=== PATIENT | male | born 1980 | race Caucasian/White ===

== ENCOUNTER 2022-10-21 20:22 | Emergency (ER) | payer BC, MEDICAID, OTHER ==
[2022-10-21] MEDS ORDERED: LACTATED RINGERS 1,000 ML IV ONE (20:30)
[2022-10-21] MEDS ORDERED: LORazepam INJ 2 MG/ML (ATIVAN) VIAL IVP ONE (20:30)
[2022-10-21 20:39] LABS: BASOPHILS % (AUTO) 0 % (0-10); EOSINOPHILS % (AUTO) 0 % (0-10); HEMATOCRIT 45 % (40-54); LYMPHOCYTES # (AUTO) 2.4 10^3/uL (1.0-4.0); LYMPHOCYTES % (AUTO) 24 % (12-44); MEAN CORPUSCULAR HEMOGLOBIN 30 pg (25-34); MEAN CORPUSCULAR HGB CONC 36 g/dL (32-36); MEAN CORPUSCULAR VOLUME 82 fL (80-99); MEAN PLATELET VOLUME 8.9 fL (9.0-12.2); MONOCYTES % (AUTO) 10 % (0-12); NEUTROPHILS # (AUTO) 6.3 10^3/uL (1.8-7.8); NEUTROPHILS % (AUTO) 65 % (42-75); PLATELET COUNT 341 10^3/uL (130-400); WHITE BLOOD COUNT 9.7 10^3/uL (4.3-11.0)
[2022-10-21 21:01] LABS: PROTHROMBIN TIME PATIENT 13.5 SEC (12.2-14.7)
[2022-10-21 21:12] LABS: ACETAMINOPHEN < 10 UG/ML (10-30); ALANINE AMINOTRANSFERASE 20 U/L (0-55); ALBUMIN 4.7 GM/DL (3.2-4.5); ALKALINE PHOSPHATASE 56 U/L (40-136); BILIRUBIN,TOTAL 1.3 MG/DL (0.1-1.0); BUN/CREATININE RATIO 7; CALCIUM 10.5 MG/DL (8.5-10.1); CARBON DIOXIDE 14 MMOL/L (21-32); CHLORIDE 107 MMOL/L (98-107); CREATINE KINASE 167 U/L (30-200); CREATININE SERUM 1.42 MG/DL (0.60-1.30); GFR ESTIMATED 63; GLUCOSE 100 MG/DL (70-105); MAGNESIUM 2.1 MG/DL (1.6-2.4); SALICYLATE < 5.0 MG/DL (5.0-20.0); SODIUM 139 MMOL/L (135-145); TOTAL PROTEIN 8.1 GM/DL (6.4-8.2)
--- NOTE | 2022-10-21 21:25 | Diagnostic Imaging Report ---
EXAMINATION: Chest 1 view. HISTORY: Chest pain. COMPARISON: None available. FINDINGS: The lung volumes are normal. No focal consolidation is seen. No large pleural effusion or pneumothorax is seen. The cardiomediastinal silhouette is normal in size and contour. No acute osseous abnormality is seen. IMPRESSION: No acute pleuroparenchymal process. Dictated by: Dictated on workstation # [id number]
[2022-10-21 21:28] LABS: CLARITY,URINE CLEAR; COLOR,URINE YELLOW; GLUCOSE, URINE (UA) NEGATIVE (NEGATIVE); KETONES,URINE 3+ (NEGATIVE); LEUKOCYTE ESTERASE ,URINE NEGATIVE (NEGATIVE); NITRITE,URINE NEGATIVE (NEGATIVE); PROTEIN,URINE 1+ (NEGATIVE)
[2022-10-21 21:47] LABS: AMPHETAMINE SCREEN, URINE POSITIVE (NEGATIVE); CANNABINOID SCREEN, URINE POSITIVE (NEGATIVE)
[2022-10-21 21:48] LABS: BARBITURATE SCREEN URINE NEGATIVE (NEGATIVE); BENZODIAZEPINES SCREEN URINE NEGATIVE (NEGATIVE); COCAINE SCREEN URINE NEGATIVE (NEGATIVE); METHADONE STAT NEGATIVE (NEGATIVE); OPIATE SCREEN URINE NEGATIVE (NEGATIVE); OXYCODONE STAT NEGATIVE (NEGATIVE); PROPOXYPHENE STAT NEGATIVE (NEGATIVE); TRICYCLIC ANTIDEPRESSANTS SCRE NEGATIVE (NEGATIVE)
[2022-10-21 21:52] LABS: AMORPHOUS SEDIMENT,UR FEW AMOR PHOSPHATE /LPF; BACTERIA,URINE MODERATE /HPF; HYALINE CASTS, URINE 0-2 /LPF; RBC,URINE RARE /HPF
--- NOTE | 2022-10-21 22:12 | ED Chest Pain ---
General Chief Complaint: Chest Pain Stated Complaint: CHEST PAIN Nursing Triage Note: PT TO RM 2 BY EMS WITH CC OF CHEST PAIN AND SOA X 1 HOUR. PT STATES WAS IN THE BATHTUB WHEN CHEST PAIN BEGAN. PT DENIES CARDIAC HX. Source: patient Exam Limitations: clinical condition History of Present Illness Date Seen by Provider: October 21, 2022 Time Seen by Provider: 20:24 Initial Comments This 42-year-old man presents to the emergency room via EMS with complaints of left lower chest pain, tachycardia, and hyperventilation. He was at a friend's house and friends report that he had been "partying last night". Patient does not remember partying or using any illicit substances according to his report. His chest pain is a sharp stabbing pain. Heart rate is noted in the 140s. He appears to be hyperventilating with an oxygen saturation of 100%. He complains of tingling in his distal extremities. He denies any known health problems and reports taking no medications, although his medication filling record reveals multiple psychiatric medications prescribed recently. He vomited x1 prior to arrival. Allergies and Home Medications Allergies Coded Allergies: No Known Drug Allergies (Unverified , 10/21/22) Patient Home Medication List Home Medication List Reviewed: Yes Review of Systems Review of Systems Constitutional: no symptoms reported EENTM: No Symptoms Reported Respiratory: See HPI Cardiovascular: See HPI Gastrointestinal: See HPI Genitourinary: No Symptoms Reported Musculoskeletal: no symptoms reported Skin: no symptoms reported Psychiatric/Neurological: See HPI Endocrine: No Symptoms Reported Hematologic/Lymphatic: No Symptoms Reported Past Bgnkilz-Dmtdls-Xefpxm Hx Patient Social History Tobacco Use?: Yes Tobacco type used: Cigarettes Substance use?: Yes Substance type: Methamphetamine Alcohol Use?: No Pt feels they are or have been: No Past Medical History Surgeries: No Respiratory: No Cardiac: No Neurological: No Genitourinary: No Gastrointestinal: No Musculoskeletal: No Endocrine: No HEENT: No Cancer: No Psychosocial: Yes Integumentary: No Physical Exam Vital Signs Vital Signs - First Documented 10/21/22 20:23 Pulse 130 Resp 28 B/P (MAP) 117/82 (94) Pulse Ox 98 O2 Delivery Room Air Capillary Refill : Less Than 3 Seconds Height, Weight, BMI Height: '" Weight: lbs. oz. kg; BMI Method: General Appearance: WD/WN, Anxious, Moderate Distress HEENT: PERRL/EOMI, Normal ENT Inspection Neck: Normal Inspection; No JVD Respiratory: Chest Non Tender, Lungs Clear, Normal Breath Sounds, No Accessory Muscle Use Cardiovascular: No Edema, No Murmur, Tachycardia Gastrointestinal: Non Tender, Soft Extremity: Normal Inspection, No Pedal Edema Neurologic/Psychiatric: Alert, Oriented x3, No Motor/Sensory Deficits, Other (Very anxious and hyperventilating) Skin: Normal Color, Warm/Dry Progress/Results/Core Measures Results/Orders Lab Results Laboratory Tests Test 10/21/22 20:25 10/21/22 21:20 10/21/22 22:30 Range/Units White Blood Count 9.7 4.3-11.0 10^3/uL Red Blood Count 5.43 4.30-5.52 10^6/uL Hemoglobin 16.0 13.3-17.7 g/dL Hematocrit 45 40-54 % Mean Corpuscular Volume 82 80-99 fL Mean Corpuscular Hemoglobin 30 25-34 pg Mean Corpuscular Hemoglobin Concent 36 32-36 g/dL Red Cell Distribution Width 13.2 10.0-14.5 % Platelet Count 341 130-400 10^3/uL Mean Platelet Volume 8.9 L 9.0-12.2 fL Immature Granulocyte % (Auto) 0 % Neutrophils (%) (Auto) 65 42-75 % Lymphocytes (%) (Auto) 24 12-44 % Monocytes (%) (Auto) 10 0-12 % Eosinophils (%) (Auto) 0 0-10 % Basophils (%) (Auto) 0 0-10 % Neutrophils # (Auto) 6.3 1.8-7.8 10^3/uL Lymphocytes # (Auto) 2.4 1.0-4.0 10^3/uL Monocytes # (Auto) 1.0 0.0-1.0 10^3/uL Eosinophils # (Auto) 0.0 0.0-0.3 10^3/uL Basophils # (Auto) 0.0 0.0-0.1 10^3/uL Immature Granulocyte # (Auto) 0.0 0.0-0.1 10^3/uL Prothrombin Time 13.5 12.2-14.7 SEC INR Comment 1.0 0.8-1.4 Activated Partial Thromboplast Time 27 24-35 SEC Sodium Level 139 135-145 MMOL/L Potassium Level 3.0 L 3.6-5.0 MMOL/L Chloride Level 107 98-107 MMOL/L Carbon Dioxide Level 14 L 21-32 MMOL/L Anion Gap 18 H 5-14 MMOL/L Blood Urea Nitrogen 10 7-18 MG/DL Creatinine 1.42 H 0.60-1.30 MG/DL Estimat Glomerular Filtration Rate 63 BUN/Creatinine Ratio 7 Glucose Level 100 70-105 MG/DL Calcium Level 10.5 H 8.5-10.1 MG/DL Corrected Calcium 8.5-10.1 MG/DL Magnesium Level 2.1 1.6-2.4 MG/DL Total Bilirubin 1.3 H 0.1-1.0 MG/DL Aspartate Amino Transf (AST/SGOT) 31 5-34 U/L Alanine Aminotransferase (ALT/SGPT) 20 0-55 U/L Alkaline Phosphatase 56 40-136 U/L Total Creatine Kinase 167 30-200 U/L Myoglobin 47.1 10.0-92.0 NG/ML Troponin I < 0.028 < 0.028 <0.028 NG/ML Total Protein 8.1 6.4-8.2 GM/DL Albumin 4.7 H 3.2-4.5 GM/DL Salicylates Level < 5.0 L 5.0-20.0 MG/DL Acetaminophen Level < 10 L 10-30 UG/ML Serum Alcohol < 10 <10 MG/DL Urine Color YELLOW Urine Clarity CLEAR Urine pH 7.0 5-9 Urine Specific [place] 1.010 L 1.016-1.022 Urine Protein 1+ H NEGATIVE Urine Glucose (UA) NEGATIVE NEGATIVE Urine Ketones 3+ H NEGATIVE Urine Nitrite NEGATIVE NEGATIVE Urine Bilirubin 1+ H NEGATIVE Urine Urobilinogen 2.0 < = 1.0 MG/DL Urine Leukocyte Esterase NEGATIVE NEGATIVE Urine RBC (Auto) NEGATIVE NEGATIVE Urine RBC RARE /HPF Urine WBC 2-5 /HPF Urine Crystals PRESENT H /LPF Urine Amorphous Sediment FEW ARA PHOSPHATE H /LPF Urine Bacteria MODERATE H /HPF Urine Casts PRESENT /LPF Urine Hyaline Casts 0-2 H /LPF Urine Mucus LARGE H /LPF Urine Culture Indicated YES Urine Opiates Screen NEGATIVE NEGATIVE Urine Oxycodone Screen NEGATIVE NEGATIVE Urine Methadone Screen NEGATIVE NEGATIVE Urine Propoxyphene Screen NEGATIVE NEGATIVE Urine Barbiturates Screen NEGATIVE NEGATIVE Ur Tricyclic Antidepressants Screen NEGATIVE NEGATIVE Urine Phencyclidine Screen NEGATIVE NEGATIVE Urine Amphetamines Screen POSITIVE H NEGATIVE Urine Methamphetamines Screen POSITIVE H NEGATIVE Urine Benzodiazepines Screen NEGATIVE NEGATIVE Urine Cocaine Screen NEGATIVE NEGATIVE Urine Cannabinoids Screen POSITIVE H NEGATIVE My Orders Orders - MICAELA VAUGHAN MD Ekg Tracing (10/21/22 20:25) Cbc With Automated Diff (10/21/22 20:28) Magnesium (10/21/22 20:) Chest 1 View, Ap/Pa Only (10/21/22:) Comprehensive Metabolic Panel (10/21/22 20:) Myoglobin Serum (10/21/22 20:) Protime With Inr (10/21/22:) Partial Thromboplastin Time (10/21/22:) Monitor-Rhythm Ecg Trace Only (10/21/22:) Ed Iv/Invasive Line Start (10/21/22 20:28) Drug Screen Stat (Urine) (10/21/22 20:) Lorazepam Injection (Ativan Injection) (10/21/22 20:30) Lactated Ringers (Lr 1000 Ml Iv Solution (10/21/22 20:30) Acetaminophen (10/21/22 20:28) Salicylate (10/21/22 20:28) Ua Culture If Indicated (10/21/22:) Alcohol (10/21/22 20:) Creatine Kinase (10/21/22 20:28) Troponin I [place] (10/21/22 20:28) Urine Culture (10/21/22 21:20) Potassium Cl 10meq/50ml Ivpb (Kcl 10 Meq (10/21/22 22:15) Ns Iv 1000 Ml (Sodium Chloride 0.9%) (10/21/22 22:15) Troponin I [place] (10/21/22 22:25) Potassium Chloride (Tablet) (Klor Con Ta (10/21/22 23:30) Medications Given in ED Current Medications Medications Dose Ordered Sig/Tee Route Start Time Stop Time Status Last Admin Dose Admin Lactated Ringer's 1,000 ml @ 0 mls/hr Q0M ONCE IV 10/21/22 20:30 10/21/22 20:32 DC 10/21/22 20:38 1,000 MLS/HR Lorazepam 1 mg ONCE ONCE IVP 10/21/22:30 10/21/22 20:32 DC 10/21/22 20:38 1 MG Potassium Chloride 40 meq ONCE ONCE PO 10/21/22 23:30 10/21/22 23:31 DC 10/21/22 23:32 40 MEQ Potassium Chloride 50 ml @ 50 mls/hr ONCE ONCE IV 10/21/22 22:15 10/21/22 23:14 DC 10/21/22 22:29 50 MLS/HR Vital Signs/I&O 10/21/22 10/22/22 20:23 00:09 Pulse 130 63 Resp 28 28 B/P (MAP) 117/82 (94) 119/78 Pulse Ox 98 98 O2 Delivery Room Air Room Air Blood Pressure Mean: 94 Progress Progress Note : Progress Note Patient was interviewed and examined shortly after arrival. Report was received from EMS. Patient appeared to be hyperventilating and was treated with Ativan which did abort his anxiety attack. EKG revealed sinus tachycardia with no other significant abnormalities by my interpretation. Chest x-ray report was reviewed and was unremarkable per radiologist interpretation. Labs were obtained, reviewed, and interpreted by me. There is notable hypokalemia of 3.0. This was replaced initially by IV route with potassium chloride 10 mEq. This was followed by oral potassium 40 mEq. CO2 was low at 14 likely secondary to his hyperventilation. Creatinine was mildly elevated at 1.4 although GFR was normal. The remainder of the CMP was relatively unremarkable by my interpretation. Troponin and delta troponin were both negative. CK was normal. Patient was hydrated with 2 L of IV fluid. Chest pain resolved after being treated with Ativan. Toxicology screen was positive for methamphetamine and marijuana. Patient did admit to using illicit substances after discussing his lab results. Patient was stable for discharge. See discharge instructions for further discussion. Initial ECG Impression Date: October 21, 2022 Initial ECG Impression Time: 20:30 Initial ECG Rate: 127 Initial ECG Rhythm: S.Tach Comment Sinus tachycardia with no diagnostic ST elevation or depression. No abnormal intervals or axis deviation. Diagnostic Imaging Diagonstic Imaging: Xray Plain Films/CT/US/NM/MRI: chest Comments NAME: MINI LEIGH MED REC#: [id number] PT STATUS: REG ER : 1980 PHYSICIAN: MICAELA VAUGHAN MD ADMIT DATE: 10/21/22/ER Signed Date of Exam:10/21/22 CHEST 1 VIEW, AP/PA ONLY EXAMINATION: Chest 1 view. HISTORY: Chest pain. COMPARISON: None available. FINDINGS: The lung volumes are normal. No focal consolidation is seen. No large pleural effusion or pneumothorax is seen. The cardiomediastinal silhouette is normal in size and contour. No acute osseous abnormality is seen. IMPRESSION: No acute pleuroparenchymal process. Dictated by: Dictated on workstation # [id number] Dict: 10/21/222121 Trans: 10/21/222134 PJE [id number] Interpreted by: CAMRYN ACEVEDO DO Electronically signed by: CAMRYN ACEVEDO DO 10/21/222134 Departure Impression Primary Impression: Atypical chest pain Additional Impressions: Hypokalemia Hyperventilation Polysubstance abuse Hypovolemia Disposition: 01 HOME, SELF-CARE Condition: Improved Departure-Patient Inst. Decision time for Depature: 00:00 Patient Instructions: ALCOHOL AND SUBSTANCE ABUSE, Chest Pain That Is Not Caused by the Heart (DC), OUTPT SUBSTANCE ABUSE RESOURCE Add. Discharge Instructions: Drink plenty of clear liquids to stay well-hydrated. Follow-up with a primary care provider soon as possible. Refrain from use of illicit substances such as methamphetamine, marijuana, delta products, alcohol, etc., as these substances may have catastrophic health effects and may significantly worsen your anxiety. Connect with outpatient resources for substance abuse treatment and social support. I suggest contacting either [facility] at [phone] or the [facility] at [phone] as a starting point. Return to care in the emergency room if you have worsening symptoms. All discharge instructions reviewed with patient and/or family. Voiced understanding. MICAELA VAUGHAN MD October 21, 2022 22:12
[2022-10-21] MEDS ORDERED: POTASSIUM CL 10MEQ/50ML IVPB 50 ML IV ONE (22:15)
[2022-10-21] MEDS ORDERED: NS IV 1000 ML 1,000 ML IV SCH (22:15)
[2022-10-21 22:42] LABS: BILIRUBIN,URINE 1+ (NEGATIVE)
[2022-10-21] MEDS ORDERED: KCL 10 MEQ TAB (MICRO K) PO ONE (23:30)
[2022-10-22 00:09] VITALS: BP 119/78
== END 2022-10-22 00:11 | disposition home or self-care (01) ==
LOC: ER 20:24
DX: R07.89 Other chest pain (principal); R06.4 Hyperventilation; E86.1 Hypovolemia; E87.6 Hypokalemia; F19.10 Other psychoactive substance abuse, uncomplicated; R00.0 Tachycardia, unspecified; R79.89 Other specified abnormal findings of blood chemistry; F17.210 Nicotine dependence, cigarettes, uncomplicated
CPT/HCPCS: 36415; 71045; 80053; 80306; 80320; 80329; 81000; 82550; 83735; 83874; 84484; 85025; 85610; 85730; 87088; 93005; 93041

== ENCOUNTER 2022-10-29 19:51 | Emergency (ER) | payer BC ==
[~2022-10-29] VITALS: Ht 176 cm; Wt 72.0 kg
[2022-10-29 20:00] VITALS: BP 111/73
--- NOTE | 2022-10-29 20:08 | ED Integumentary General ---
General Stated Complaint: RASH ON ARMS Source: patient Exam Limitations: no limitations (OWEN CADET) History of Present Illness Date Seen by Provider: October 29, 2022 Time Seen by Provider: 20:03 Initial Comments Patient is a 42-year-old male who presents the ED with a diffuse red itchy rash. Started on his upper extremities and has spread to his back, neck, chest, lower extremities. Unknown exposure. States he has not been outside. Potential change in laundry detergent. Denies fever, recent antibiotic use, chills, nausea, vomiting, diarrhea, sore throat, headache, dizziness. Denies taking medication. Describes the rash as red itchy" bumps"'. (OWEN CADET) Allergies and Home Medications Allergies Coded Allergies: No Known Drug Allergies (Unverified , 10/21/22) Patient Home Medication List Home Medication List Reviewed: Yes (OWEN CADET) Diphenhydramine HCl (Benadryl) 25 Mg Capsule, 25 MG PO Q6H Prescribed by: SHYAM HATCH on 10/29/222009 Prednisone (Prednisone) 50 Mg Tab, 50 MG PO DAILY Prescribed by: SHYAM HATCH on 10/29/222009 Review of Systems Review of Systems Constitutional: No chills, No diaphoresis, No fever, No malaise, No weakness EENTM: No ear pain, No blurred vision, No double vision Respiratory: No cough, No dyspnea on exertion Cardiovascular: No chest pain, No edema, No Hx of Intervention Gastrointestinal: No abdominal pain, No diarrhea, No nausea, No vomiting Genitourinary: No decreased output, No discharge Musculoskeletal: No back pain, No joint pain, No joint swelling Skin: rash (OWEN CADET) All Other Systems Reviewed Negative Unless Noted: Yes (OWEN CADET) Past Xudywko-Cafhzw-Zfkvrw Hx Past Medical History Surgeries: No Respiratory: No Cardiac: No Neurological: No Genitourinary: No Gastrointestinal: No Musculoskeletal: No Endocrine: No HEENT: No Cancer: No Psychosocial: Yes Integumentary: No (OWEN CADET) Physical Exam Vital Signs Vital Signs - First Documented 10/29/22 20:00 Temp 36.9 Pulse 83 Resp 20 B/P (MAP) 111/73 (86) Pulse Ox 96 O2 Delivery Room Air (MARÍA,JAROD K DO) Vital Signs Capillary Refill : (OWEN CADET) General Appearance: WD/WN, no apparent distress HEENT: PERRL/EOMI, normal ENT inspection, TMs normal, pharynx normal Neck: non-tender, full range of motion, supple, normal inspection Cardiovascular: regular rate, rhythm, no edema Respiratory: chest non-tender, lungs clear, normal breath sounds, no respiratory distress Gastrointestinal: normal bowel sounds, non tender, soft, no organomegaly Back: normal inspection, no CVA tenderness, no vertebral tenderness Extremities: normal range of motion, non-tender, normal inspection, no pedal edema, no calf tenderness 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 No pustules, vesicles or exudate) (OWEN CADET) Progress/Results/Core Measures Results/Orders Medications Given in ED Current Medications Medications Dose Ordered Sig/Tee Route Start Time Stop Time Status Last Admin Dose Admin Diphenhydramine HCl 25 mg ONCE ONCE PO 10/29/22 20:15 10/29/22 20:14 DC 10/29/22 20:10 25 MG Prednisone 50 mg ONCE ONCE PO 10/29/22 20:15 10/29/22 20:14 DC 10/29/22 20:10 50 MG (MARÍA,JAROD K DO) Vital Signs/I&O 10/29/22 20:00 Temp 36.9 Pulse 83 Resp 20 B/P (MAP) 111/73 (86) Pulse Ox 96 O2 Delivery Room Air (MARÍA,JAROD K DO) Departure Communication (PCP) Patient is a 42-year-old male patient is a 42-year-old male presents ED with a diffuse erythematous papular rash. Rash started 3 days ago. Migrated and spread throughout the back, neck, chest and lower extremity. Appears to be allergic reaction type rash. No evidence of pustules, exudate or vesicles. No recent fever, antibiotic use. No sloughing of the skin. No oral mucosal lesion. Due to the diffuse rash patient will discharge with oral prednisone. Recommend Benadryl. Was given a dose here. Continue for 4 days. If any worsening symptoms return back to ED for further fashion. Follow-up with your PCP in 2 to 3 days for reevaluation (OWEN CADET) Impression Primary Impression: Rash Disposition: 01 HOME, SELF-CARE Condition: Stable Departure-Patient Inst. Decision time for Depature: 20:07 (OWEN CADET) Referrals: [facility],LOCAL PHYSICIAN (PCP) Primary Care Physician Patient Instructions: Skin Rash (DC) Add. Discharge Instructions: Recommend taking the medication as prescribed. Avoid irritants. Avoid scratching. Scripts Diphenhydramine HCl (Benadryl) 25 Mg Capsule 25 MG PO Q6H for Itching, #12 CAP Prov: OWEN CADET 10/29/22 Prednisone (Prednisone) 50 Mg Tab 50 MG PO DAILY for 4 Days, #4 TAB Prov: OWEN CADET 10/29/22 ATTENDING PHYSICIAN NOTE: I WAS PHYSICALLY PRESENT ER PHYSICIAN, BUT IN WAS NOT INVOLVED IN ANY DECISION MAKING OR ANY CARE OF THIS PATIENT, AND I AM NOT COLLABORATING PHYSICIAN. (JAROD DANIEL DO) OWEN CADET October 29, 2022 20:08 JAROD DANIEL DO October 30, 2022 02:53
[2022-10-29] MEDS ORDERED: PRD50T PO (20:10)
[2022-10-29] MEDS ORDERED: DIPH25CA79 PO (20:10)
[2022-10-29] MEDS ORDERED: diphenhydrAMINE 25 MG TAB (BENADRYL) PO ONE (20:15)
[2022-10-29] MEDS ORDERED: predniSONE 20 MG TAB PO ONE (20:15)
== END 2022-10-29 20:14 | disposition home or self-care (01) ==
LOC: EDUNIT# 19:51 → ER 19:53
DX: R21 Rash and other nonspecific skin eruption (principal); Z28.310 Unvaccinated for COVID-19
CPT/HCPCS: 99283

== ENCOUNTER 2023-01-12 18:43 | Emergency (ER) | payer BC ==
[~2023-01-12] VITALS: Ht 172 cm; Wt 68.0 kg
[~2023-01-12 18:43] MED LIST: DIPH25CA79 PO; PRD50T PO
[2023-01-12] MEDS ORDERED: LACTATED RINGERS 1,000 ML IV ONE (19:00)
--- NOTE | 2023-01-12 19:07 | ED General ---
General Chief Complaint: Back Problems Stated Complaint: BACK PAIN Nursing Triage Note: PT AMB TO RM 6 PT CO OF BACK PAIN IN LOWER R BACK INTO SCROTUM AND R LEG. RATES PAIN / Source of Information: Patient History of Present Illness Date Seen by Provider: Jan 12, 2023 Time Seen by Provider: 18:57 Initial Comments PT ARRIVES VIA POV FROM HOME STATES "I HURT MY BACK" STATES HE WAS MOVING THINGS OUT OF STORAGE TODAY AROUND 10 AM STATES "IT HURTS ALL DOWN THE FRONT OF BOTH OF MY LEGS AND IN MY PRIVATES" PT STATES IT IS VERY PAINFUL TO URINATE AND HAS HAD DECREASED URINE OUTPUT TODAY NO NAUSEA/VOMITING/DIARRHEA/CONSTIPATION NO FEVER NO PARESTHESIAS OR MOTOR DEFICITS PT STATES HE HAS BEEN EATING AND DRINKING NORMALLY TODAY HAS NOT TAKEN ANYTHING FOR PAIN AT ANY TIME STATES HE HAS CHRONIC BACK PAIN DENIES ANY OTHER MEDICAL PROBLEMS, DENIES ANY SURGERIES HE SMOKES 1 PPD, DENIES ETOH, DOES USE MARIJUANA DAILY PCP: NONE Allergies and Home Medications Allergies Coded Allergies: Sulfa (Sulfonamide Antibiotics) (Verified Allergy, Unknown, 01/12/23) cephalexin (Verified Allergy, Unknown, 01/12/23) Patient Home Medication List Home Medication List Reviewed: Yes Ciprofloxacin HCl (Ciprofloxacin HCl) 500 Mg Tablet, 500 MG PO BID Prescribed by: JAROD DANIEL on 01/12/232050 Cyclobenzaprine HCl (Cyclobenzaprine HCl) 10 Mg Tablet, 10 MG PO Q8H PRN for SPASMS Prescribed by: JAROD DANIEL on 01/12/232015 Diphenhydramine HCl (Benadryl) 25 Mg Capsule, 25 MG PO Q6H Prescribed by: SHYAM HATCH on 10/29/222009 Naproxen (Naproxen) 500 Mg Tablet.dr, 500 MG PO BID Prescribed by: JAROD DANIEL on 01/12/232015 Prednisone (Prednisone) 50 Mg Tab, 50 MG PO DAILY Prescribed by: SHYAM HATCH on 10/29/222009 Review of Systems Review of Systems Constitutional: no symptoms reported Respiratory: no symptoms reported Cardiovascular: no symptoms reported Gastrointestinal: no symptoms reported Genitourinary: see HPI Musculoskeletal: see HPI Skin: no symptoms reported Psychiatric/Neurological: No Symptoms Reported Hematologic/Lymphatic: No Symptoms Reported Immunological/Allergic: no symptoms reported Past Sdyagwy-Xrvvmd-Nerffd Hx Patient Social History Tobacco Use?: Yes Tobacco type used: Cigarettes Smoking Status: Current Everyday Smoker Use of E-Cig and/or Vaping dev: Yes E-Cig or Vaping type used: Nicotine Substance use?: Yes Substance type: Marijuana Substance frequency: Daily Alcohol Use?: No Pt feels they are or have been: No Immunizations Up To Date First/Initial COVID19 Vaccinat: YES Second COVID19 Vaccination Slava: YES Past Medical History Surgery/Hospitalization HX: DENIES Surgeries: No Respiratory: No Cardiac: No Neurological: No Genitourinary: No Gastrointestinal: No Musculoskeletal: Yes Chronic Back Pain Endocrine: No HEENT: No Cancer: No Psychosocial: Yes Anxiety Integumentary: No Blood Disorders: No Family Medical History SOCIAL HISTORY: -SMOKES 1 PPD, PLUS VAPES NICOTINE -ETOH--DENIES USE -DRUGS--DAILY MARIJUANA USE Physical Exam Vital Signs Vital Signs - First Documented 01/12/23 01/12/23 18:50 20:09 Temp 36.6 Pulse 82 Resp 18 B/P (MAP) 129/82 (98) Pulse Ox 99 O2 Delivery Room Air Capillary Refill : Less Than 3 Seconds Height, Weight, BMI Height: '" Weight: lbs. oz. kg; 22.00 BMI Method: General Appearance: No Apparent Distress, WD/WN, Other (WALKS UPRIGHT AND MOVES WITHOUT DIFFICULTY; REEKS OF CIGARETTES) HEENT: PERRL/EOMI, Other (POOR DENTITION ) Neck: Normal Inspection Respiratory: Normal Breath Sounds, No Accessory Muscle Use, No Respiratory Distress Cardiovascular: Regular Rate, Rhythm, No Murmur Gastrointestinal: Non Tender, Soft Back: Other (MILD LOWER BACK TENDERNESS.) Extremity: Normal Capillary Refill, Normal Inspection, Normal Range of Motion, Non Tender, No Calf Tenderness, No Pedal Edema, Other (DTR'S INTACT) Neurologic/Psychiatric: Alert, Oriented x3, No Motor/Sensory Deficits, Normal Mood/Affect, forest aide II-XII Norm as Tested Skin: Normal Color, Warm/Dry Progress/Results/Core Measures Suspected Sepsis SIRS Temperature: Pulse: 82 Respiratory Rate: 18 Laboratory Tests 01/12/23 19:20: White Blood Count 5.0 Blood Pressure 129 /82 Mean: 98 Laboratory Tests 01/12/23 19:20: Creatinine 1.18, Platelet Count 275, Total Bilirubin 0.5 Results/Orders Lab Results Laboratory Tests Test 01/12/23 19:20 01/12/23 20:08 Range/Units White Blood Count 5.0 4.3-11.0 10^3/uL Red Blood Count 5.02 4.30-5.52 10^6/uL Hemoglobin 14.8 13.3-17.7 g/dL Hematocrit 43 40-54 % Mean Corpuscular Volume 86 80-99 fL Mean Corpuscular Hemoglobin 30 25-34 pg Mean Corpuscular Hemoglobin Concent 34 32-36 g/dL Red Cell Distribution Width 13.8 10.0-14.5 % Platelet Count 275 130-400 10^3/uL Mean Platelet Volume 8.9 L 9.0-12.2 fL Immature Granulocyte % (Auto) 0 % Neutrophils (%) (Auto) 50 42-75 % Lymphocytes (%) (Auto) 40 12-44 % Monocytes (%) (Auto) 8 0-12 % Eosinophils (%) (Auto) 2 0-10 % Basophils (%) (Auto) 1 0-10 % Neutrophils # (Auto) 2.5 1.8-7.8 10^3/uL Lymphocytes # (Auto) 2.0 1.0-4.0 10^3/uL Monocytes # (Auto) 0.4 0.0-1.0 10^3/uL Eosinophils # (Auto) 0.1 0.0-0.3 10^3/uL Basophils # (Auto) 0.0 0.0-0.1 10^3/uL Immature Granulocyte # (Auto) 0.0 0.0-0.1 10^3/uL Sodium Level 140 135-145 MMOL/L Potassium Level 3.5 L 3.6-5.0 MMOL/L Chloride Level 107 98-107 MMOL/L Carbon Dioxide Level 23 21-32 MMOL/L Anion Gap 10 5-14 MMOL/L Blood Urea Nitrogen 12 7-18 MG/DL Creatinine 1.18 0.60-1.30 MG/DL Estimat Glomerular Filtration Rate 79 BUN/Creatinine Ratio 10 Glucose Level 75 70-105 MG/DL Calcium Level 9.5 8.5-10.1 MG/DL Corrected Calcium 9.3 8.5-10.1 MG/DL Total Bilirubin 0.5 0.1-1.0 MG/DL Aspartate Amino Transf (AST/SGOT) 17 5-34 U/L Alanine Aminotransferase (ALT/SGPT) 18 0-55 U/L Alkaline Phosphatase 55 40-136 U/L Total Protein 7.4 6.4-8.2 GM/DL Albumin 4.2 3.2-4.5 GM/DL Amylase Level 70 25-125 U/L Lipase 33 8-78 U/L Serum Alcohol < 10 <10 MG/DL Urine Color YELLOW Urine Clarity CLEAR Urine pH 6.5 5-9 Urine Specific [place] 1.020 1.016-1.022 Urine Protein NEGATIVE NEGATIVE Urine Glucose (UA) NEGATIVE NEGATIVE Urine Ketones 3+ H NEGATIVE Urine Nitrite NEGATIVE NEGATIVE Urine Bilirubin NEGATIVE NEGATIVE Urine Urobilinogen 0.2 < = 1.0 MG/DL Urine Leukocyte Esterase NEGATIVE NEGATIVE Urine RBC (Auto) NEGATIVE NEGATIVE Urine RBC 0-2 /HPF Urine WBC NONE /HPF Urine Squamous Epithelial Cells 10-25 H /HPF Urine Crystals NONE /LPF Urine Bacteria FEW H /HPF Urine Casts NONE /LPF Urine Mucus LARGE H /LPF Urine Yeast FEW H /HPF Urine Culture Indicated NO Urine Opiates Screen NEGATIVE NEGATIVE Urine Oxycodone Screen NEGATIVE NEGATIVE Urine Methadone Screen NEGATIVE NEGATIVE Urine Propoxyphene Screen NEGATIVE NEGATIVE Urine Barbiturates Screen NEGATIVE NEGATIVE Ur Tricyclic Antidepressants Screen NEGATIVE NEGATIVE Urine Phencyclidine Screen NEGATIVE NEGATIVE Urine Amphetamines Screen NEGATIVE NEGATIVE Urine Methamphetamines Screen NEGATIVE NEGATIVE Urine Benzodiazepines Screen NEGATIVE NEGATIVE Urine Cocaine Screen NEGATIVE NEGATIVE Urine Cannabinoids Screen NEGATIVE NEGATIVE My Orders Orders - JAROD DANIEL DO Ed Iv/Invasive Line Start (01/12/23 19:00) Monitor-Rhythm Ecg Trace Only (01/12/23 19:00) Alcohol (01/12/23 19:00) Amylase (01/12/23 19:00) Cbc With Automated Diff (01/12/23 19:00) Comprehensive Metabolic Panel (01/12/23 19:00) Drug Screen Stat (Urine) (01/12/23 19:00) Lipase (01/12/23 19:00) Ua Culture If Indicated (01/12/23 19:00) Ct Abd/Pelvis Wo(Kidney Stone) (01/12/23 19:00) Ed Iv/Invasive Line Start (01/12/23 19:00) Lactated Ringers (Lr 1000 Ml Iv Solution (01/12/23 19:00) Ketorolac Injection (Toradol Injection) (01/12/23 20:15) Orphenadrine Inj (Ed Only) (Norflex Inje (01/12/23 20:15) Medications Given in ED Current Medications Medications Dose Ordered Sig/Tee Route Start Time Stop Time Status Last Admin Dose Admin Ketorolac Tromethamine 30 mg ONCE ONCE IVP 01/12/23 20:15 01/12/23 20:16 DC 01/12/23 20:12 30 MG Lactated Ringer's 1,000 ml @ 0 mls/hr Q0M ONCE IV 01/12/23 19:00 01/12/23 19:03 DC 01/12/23 19:15 1,000 MLS/HR Orphenadrine Citrate 60 mg ONCE ONCE IV 01/12/23 20:15 01/12/23 20:16 DC 01/12/23 20:13 60 MG Vital Signs/I&O 01/12/23 01/12/23 01/12/23 18:50 20:09 21:00 Temp 36.6 Pulse 82 66 63 Resp 18 16 16 B/P (MAP) 129/82 (98) 100/67 (78) 108/66 Pulse Ox 99 97 96 O2 Delivery Room Air Room Air 01/13/23 00:00 Intake Total 1000 ml Balance 1000 ml Capillary Refill : Less Than 3 Seconds Blood Pressure Mean: 98 Progress Note : Progress Note VITALS STABLE UNEVENTFUL ER STAY GIVEN: -IV FLUIDS -TORADOL -NORFLEX LABS UNREMARKABLE UA WITH KETONES AND TRACE OF BACTERIA CT SCAN UNREMARKABLE FOR ACUTE PROCESS. REVIEWED TEST RESULTS, ANTICIPATED COURSE, SYMPTOMATIC TREATMENT, MEDICATIONS, NEED FOR FOLLOW UP AND RETURN PRECAUTIONS. AT DISMISSAL, PT NOW STATES THAT HE IS HERE BECAUSE HE IS SUPPOSED TO START WORK ON SATURDAY AT [employer]OUGH [employer]" AND STATES THAT HE HIS HERE FOR A DOCTOR'S NOTE "CLEARING HIM" TO GO TO WORK ON SATURDAY ADVISED HIM THAT THIS WOULD NEED TO BE DONE THROUGH HIS EMPLOYER, AND NOT THROUGH THE ER. Diagnostic Imaging Comments CT ABDOMEN/PELVIS--PER RADIOLOGIST REPORT AT 1932 COMPARISON: None available. FINDINGS: Lung bases: The lung bases are clear. Solid organs: The liver is normal. The gallbladder is normal. There is no biliary ductal dilation. Pancreas is normal. Spleen is normal. Adrenal glands are normal. Nonobstructing renal calculi measuring up to 0.3 cm. No hydronephrosis. There is a subcentimeter left renal cortical exophytic hypodensity which is too small for accurate characterization and requires no follow-up. Bowel: The stomach and small bowel are normal without obstruction. The colon is normal. The appendix is normal. Peritoneum: There is no intraperitoneal free fluid or free air. No suspicious lymphadenopathy. Vasculature: Normal without aneurysm. Musculoskeletal: No suspicious osseous lesion or compression fracture. Pelvis: The prostate gland is normal. The urinary bladder is normal. IMPRESSION: 1. Nonobstructing renal calculi measuring up to 0.3 cm. No hydronephrosis. 2. No other acute abnormality in the abdomen or pelvis. Reviewed: Reviewed by Me Departure Impression Primary Impression: Back pain Additional Impression: UTI (urinary tract infection) Disposition: HOME, SELF-CARE Condition: Stable Departure-Patient Inst. Decision time for Depature: 20:15 Referrals: NO,LOCAL PHYSICIAN (PCP/Family) Primary Care Physician Patient Instructions: Low Back Pain (DC) Add. Discharge Instructions: MOIST HEAT TO AREA AT 20 MINUTE INTERVALS NO LIFTING OVER 5 LBS FOR THE NEXT WEEK. NO TWISTING OR BENDING AT WAIST FOLLOW UP WITH . OF CHOICE IN 1 WEEK IF NO BETTER All discharge instructions reviewed with patient and/or family. Voiced understanding. Scripts Ciprofloxacin HCl (Ciprofloxacin HCl) 500 Mg Tablet 500 MG PO BID, #14 TAB Prov: JAROD DANIEL DO 01/12/23 Cyclobenzaprine HCl (Cyclobenzaprine HCl) 10 Mg Tablet 10 MG PO Q8H PRN for SPASMS, #15 TAB 0 Refills Prov: JAROD DANIEL DO 01/12/23 Naproxen (Naproxen) 500 Mg Tablet. 500 MG PO BID, #20 TAB Prov: SHAKIRA DANIELA K DO 01/12/23 JAROD DANIEL DO Jan 12, 2023 19:07
--- NOTE | 2023-01-12 19:23 | Diagnostic Imaging Report ---
EXAMINATION: CT abdomen and pelvis without contrast. TECHNIQUE: Multiple contiguous axial images were obtained through the abdomen and pelvis without the use of intravenous contrast. All CT scans use one or more of the following dose optimizing techniques: automated exposure control, MA and/or KvP adjustment based on patient size and exam type or iterative reconstruction. HISTORY: Flank pain, kidney stone suspected. COMPARISON: None available. FINDINGS: Lung bases: The lung bases are clear. Solid organs: The liver is normal. The gallbladder is normal. There is no biliary ductal dilation. Pancreas is normal. Spleen is normal. Adrenal glands are normal. Nonobstructing renal calculi measuring up to 0.3 cm. No hydronephrosis. There is a subcentimeter left renal cortical exophytic hypodensity which is too small for accurate characterization and requires no follow-up. Bowel: The stomach and small bowel are normal without obstruction. The colon is normal. The appendix is normal. Peritoneum: There is no intraperitoneal free fluid or free air. No suspicious lymphadenopathy. Vasculature: Normal without aneurysm. Musculoskeletal: No suspicious osseous lesion or compression fracture. Pelvis: The prostate gland is normal. The urinary bladder is normal. IMPRESSION: 1. Nonobstructing renal calculi measuring up to 0.3 cm. No hydronephrosis. 2. No other acute abnormality in the abdomen or pelvis. Dictated by: Dictated on workstation # [id number]
[2023-01-12 19:25] LABS: BASOPHILS % (AUTO) 1 % (0-10); EOSINOPHILS # (AUTO) 0.1 10^3/uL (0.0-0.3); EOSINOPHILS % (AUTO) 2 % (0-10); HEMATOCRIT 43 % (40-54); HEMOGLOBIN 14.8 g/dL (13.3-17.7); LYMPHOCYTES % (AUTO) 40 % (12-44); MEAN CORPUSCULAR HEMOGLOBIN 30 pg (25-34); MEAN CORPUSCULAR HGB CONC 34 g/dL (32-36); MEAN CORPUSCULAR VOLUME 86 fL (80-99); MEAN PLATELET VOLUME 8.9 fL (9.0-12.2); MONOCYTES # (AUTO) 0.4 10^3/uL (0.0-1.0); MONOCYTES % (AUTO) 8 % (0-12); NEUTROPHILS # (AUTO) 2.5 10^3/uL (1.8-7.8); NEUTROPHILS % (AUTO) 50 % (42-75); PLATELET COUNT 275 10^3/uL (130-400)
[2023-01-12 19:45] LABS: ALBUMIN 4.2 GM/DL (3.2-4.5)
[2023-01-12 19:46] LABS: AMYLASE 70 U/L (25-125); CHLORIDE 107 MMOL/L (98-107); POTASSIUM 3.5 MMOL/L (3.6-5.0); SODIUM 140 MMOL/L (135-145)
[2023-01-12 19:47] LABS: CALCIUM 9.5 MG/DL (8.5-10.1)
[2023-01-12 19:48] LABS: GLUCOSE 75 MG/DL (70-105); TOTAL PROTEIN 7.4 GM/DL (6.4-8.2)
[2023-01-12 19:49] LABS: CARBON DIOXIDE 23 MMOL/L (21-32)
[2023-01-12 19:50] LABS: BILIRUBIN,TOTAL 0.5 MG/DL (0.1-1.0)
[2023-01-12 19:52] LABS: ALKALINE PHOSPHATASE 55 U/L (40-136); CREATININE SERUM 1.18 MG/DL (0.60-1.30); GFR ESTIMATED 79
[2023-01-12 19:53] LABS: BUN/CREATININE RATIO 10
[2023-01-12 19:55] LABS: ALANINE AMINOTRANSFERASE 18 U/L (0-55); LIPASE 33 U/L (8-78)
[2023-01-12] MEDS ORDERED: ORPHENADRINE 60 MG/2 ML (NORFLEX) AMP (ED ONLY) IV ONE (20:15)
[2023-01-12] MEDS ORDERED: KETOROLAC 30 MG/ML VIAL IVP ONE (20:15)
[2023-01-12] MEDS ORDERED: NAPR500T8 PO (20:16)
[2023-01-12] MEDS ORDERED: CYCL10TA25 PO (20:16)
[2023-01-12 20:36] LABS: CLARITY,URINE CLEAR; COLOR,URINE YELLOW; GLUCOSE, URINE (UA) NEGATIVE (NEGATIVE); PH,URINE 6.5 (5-9); PROTEIN,URINE NEGATIVE (NEGATIVE)
[2023-01-12 20:37] LABS: BACTERIA,URINE FEW /HPF; BILIRUBIN,URINE NEGATIVE (NEGATIVE); KETONES,URINE 3+ (NEGATIVE); LEUKOCYTE ESTERASE ,URINE NEGATIVE (NEGATIVE); NITRITE,URINE NEGATIVE (NEGATIVE); RBC,URINE 0-2 /HPF; YEAST,URINE FEW /HPF
[2023-01-12 20:42] LABS: AMPHETAMINE SCREEN, URINE NEGATIVE (NEGATIVE); BARBITURATE SCREEN URINE NEGATIVE (NEGATIVE); BENZODIAZEPINES SCREEN URINE NEGATIVE (NEGATIVE); CANNABINOID SCREEN, URINE NEGATIVE (NEGATIVE); COCAINE SCREEN URINE NEGATIVE (NEGATIVE); METHADONE STAT NEGATIVE (NEGATIVE); OPIATE SCREEN URINE NEGATIVE (NEGATIVE); OXYCODONE STAT NEGATIVE (NEGATIVE); PROPOXYPHENE STAT NEGATIVE (NEGATIVE); TRICYCLIC ANTIDEPRESSANTS SCRE NEGATIVE (NEGATIVE)
[2023-01-12] MEDS ORDERED: CIPR500T5 PO (20:51)
[2023-01-12 21:00] VITALS: BP 108/66
== END 2023-01-12 21:01 | disposition home or self-care (01) ==
LOC: EDUNIT# 18:43 → ER 18:45
DX: M54.50 Low back pain, unspecified (principal); N39.0 Urinary tract infection, site not specified; N20.0 Calculus of kidney; G89.29 Other chronic pain; F17.210 Nicotine dependence, cigarettes, uncomplicated; F17.290 Nicotine dependence, other tobacco product, uncomplicated; Z88.2 Allergy status to sulfonamides
CPT/HCPCS: 36415; 74176; 80053; 80306; 80320; 81000; 82150; 83690; 85025; 96374; 96375